=== PATIENT | male | born 1995 | race Caucasian/White ===

== ENCOUNTER 2018-01-06 23:38 | Emergency (ER) | payer BC ==
[~2018-01-06] VITALS: Ht 193 cm; Wt 90.0 kg
[2018-01-06 23:44] VITALS: TEMP 98
[2018-01-07 01:00] VITALS: BP 132/69; PULSE 59
== END 2018-01-07 01:01 | disposition home or self-care (01) ==
LOC: COL.ER 23:38
DX: Z20.3 Contact with and (suspected) exposure to rabies (principal)